=== PATIENT | male | born 1945 | race Two or more races ===

== ENCOUNTER 2018-12-27 12:02 | Emergency (ER) | payer OTHER ==
[~2018-12-27] VITALS: Ht 182.9 cm; Wt 108.9 kg
[~2018-12-27 12:02] MED LIST: CELE200C PO; GEMF600T8 PO; LISI1TAB7 PO; METF500T16 PO; METH-37 PO; OMEG1CAP6 PO; POTA10TA12 PO
[2018-12-27] MEDS ORDERED: fentaNYL PF VIAL 100 MCG/2 ML VIAL IV ONE (13:00)
[2018-12-27 13:46] LABS: BASO # 0.1 x10^3/uL (0.0-0.2); BASO % 1 % (0-3); EOS # 0.4 x10^3/uL (0.0-0.7); EOS % 7 % (0-3); HEMATOCRIT 33.7 % (39.0-53.0); HEMOGLOBIN 11.4 g/dL (13.0-17.5); LYMPH # 2.5 x10^3/uL (1.0-4.8); LYMPH % 48 % (24-48); MEAN CORPUSCULAR HEMOGLOBIN 27 pg (25-35); MEAN CORPUSCULAR HGB CONC 34 g/dL (31-37); MEAN CORPUSCULAR VOLUME 81 fL (79-100); MONO # 0.7 x10^3/uL (0.0-1.1); MONO % 13 % (0-9); NEUT # 1.7 x10^3uL (1.8-7.7); NEUT % 31 % (31-73); PLATELET COUNT 189 x10^3/uL (140-400); RED BLOOD COUNT 4.18 x10^6/uL (4.30-5.70); RED CELL DISTRIBUTION WIDTH 14.6 % (11.5-14.5); WHITE BLOOD COUNT 5.3 x10^3/uL (4.0-11.0)
--- NOTE | 2018-12-27 13:46 | RAD ---
Bilateral 3 view shoulder portable HISTORY: Bilateral shoulder pain after a fall on Tuesday. Bruising. 3 view right shoulder The glenohumeral joint is poorly profiled on all views limiting evaluation. There is no definite acute fracture identified. Degenerative changes at the acromioclavicular joint with undersurface osteophytes. No evidence of dislocation. IMPRESSION: No definite acute fracture or dislocation Three-view left shoulder Severe degenerative changes at the left glenohumeral joint with marginal osteophytes. There appears to be volume loss and flattening of the humeral head and glenoid. AC joint is grossly intact. No dislocation. IMPRESSION: Primary osteoarthritis. No definite acute fracture or dislocation. Electronically signed by: Lobito Chavez MD (12/27/2018 1:43 PM) [facility]
--- NOTE | 2018-12-27 13:46 | RAD ---
CHEST AP ONLY Clinical Indication: PT FELL ON TUESDAY, CHEST PAIN Comparison: Two-view chest, October 09, 2007. Findings: The cardiomediastinal silhouette is normal. There is minimal atelectasis or scarring in the left lung base. Lungs are otherwise clear. There is no pneumothorax. No pleural effusion is appreciated. No acute bone abnormality. There is stable prominence of the left first rib costochondral junction. There is degenerative endplate spurring of the thoracic spine. IMPRESSION: No acute cardiopulmonary process. Electronically signed by: Rodger Menjivar MD (12/27/2018 1:44 PM) [id number]
--- NOTE | 2018-12-27 13:46 | RAD ---
Indications: Patient fell Carter. Bilateral knee pain. THREE-VIEW RIGHT KNEE STUDY: No acute fracture or dislocation or lytic process is seen. Chondrocalcinosis is evident. There are calcifications within the suprapatellar recess. The findings may be seen with CPPD. There is mild degenerative spurring of the patellofemoral joint compartment. There is mild degenerative spurring and joint space narrowing of the medial tibial femoral joint compartment. There is mild degenerative spurring without joint space narrowing of the lateral tibiofemoral joint compartment. Small radiopaque loose bodies are evident within the tibiofemoral joint compartment. IMPRESSION: No acute fracture. Tricompartmental primary degenerative osteoarthritis. 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 3 VIEW LEFT KNEE STUDY: Total left knee arthroplasty is evident which is well aligned. No acute fracture or dislocation or lytic process is seen. IMPRESSION: Total left knee arthroscopy. No acute fracture. Electronically signed by: Domenic Brothers MD (12/27/2018 1:43 PM) [facility]
--- NOTE | 2018-12-27 13:47 | RAD ---
AP view of the pelvis and two-view study of the left hip Clinical indications: Patient fell Carter. Left hip pain. FINDINGS: Total left hip arthroplasty is evident which is well aligned. The femoral stem is located centrally within the intramedullary canal of the proximal left femur. No acute fracture or dislocation or diastases or lytic process is evident. Total right hip arthroplasty is evident as well which is well aligned. IMPRESSION: No acute fracture. Electronically signed by: Domenic Brothers MD (12/27/2018 1:44 PM) [facility]
--- NOTE | 2018-12-27 13:53 | EKG ---
[facility] [address] [place] [address] Test Date: 2018-12-27 Test Time: 12:44:12 Pat Name: SANDRA AGUERO Department: Patient ID: [facility]-[id number] Room: Gender: M Author: [facility] ER : 1945 Requested By: SHEILA WALLACE Order Number: [id number] Reading MD: Baltazar Grant Measurements Intervals [place] Rate: 60 P: -147 AL: 142 QRS: 26 QRSD: 102 T: 20 QT: 466 QTc: 470 Interpretive Statements SINUS RHYTHM NORMAL ECG No previous ECG available for comparison Electronically Signed On 01-03-2019 11:39:23 CDT by Baltazar Grant
[2018-12-27 13:59] LABS: CREATININE 1.4 mg/dL (0.7-1.3); GFR 49.5; POTASSIUM 3.5 mmol/L (3.5-5.1)
[2018-12-27 14:05] LABS: ALBUMIN 3.8 g/dL (3.4-5.0); TOTAL BILIRUBIN 0.5 mg/dL (0.2-1.0); TOTAL PROTEIN 7.6 g/dL (6.4-8.2)
--- NOTE | 2018-12-27 14:14 | RAD ---
CT HEAD AND CERVICAL SPINE WO Indication: FALL 12/23 SHOULDER AND NECK PAIN NO PREV Exposure: One or more of the following individualized dose reduction techniques were utilized for this examination: 1. Automated exposure control 2. Adjustment of the mA and/or kV according to patient size 3. Use of iterative reconstruction technique. Technique: Standard imaging without intravenous contrast. CT head: No evidence of acute intracranial hemorrhage, mass effect, midline shift or abnormal extra-axial fluid collection. Mild prominence of ventricles and sulci compatible with mild atrophy. The orbits appear symmetric. No large scalp hematoma. There appears to be mild expansion of the sella with isodense tissue. This could be a pituitary mass such as a macroadenoma. The partially visualized sinuses are clear. No evidence of acute skull abnormality. IMPRESSION: 1. No acute intracranial hemorrhage or mass effect. 2. Evidence of a sellar mass, with mild bony expansion of the sella. This may represent a pituitary tumor such as a macroadenoma. MRI could further evaluate. CT cervical spine Ring of C1 is intact. Cervico-occipital junction is intact. C1-C2 relationship is grossly symmetric. Vertebral body height is maintained. There is no evidence of an acute fracture. Multilevel degenerative spondylosis with loss of disc height and spurring. There is facet joint degenerative disease. Jkwq-gr-oayhyxxc spinal canal narrowing at multiple levels as well as bilateral neural foraminal stenosis. No significant facet joint separation. Degenerative changes at the anterior C1 and C2 articulation. There is mild left convexity curvature of the cervical spine. Straightening of the normal cervical lordosis. No significant prevertebral soft tissue swelling or hematoma. Mild asymmetry of the thyroid gland, greater on the right. Lung apices are clear. IMPRESSION: 1. Cervical spondylosis with stenosis. 2. No evidence of an acute fracture or traumatic subluxation. Electronically signed by: Lobito Chavez MD (12/27/2018 2:11 PM) [facility]
[2018-12-27 14:23] LABS: BILIRUBIN,URINE NEGATIVE (NEG); CLARITY,URINE CLEAR; COLOR,URINE YELLOW; NITRITE,URINE NEGATIVE (NEG); PROTEIN,URINE NEGATIVE (NEG-TRACE); UROBILINOGEN,URINE 0.2 mg/dL (0.2 mg/dL)
[2018-12-27 14:30] VITALS: BP 106/57
[2018-12-27 14:36] LABS: BACTERIA,URINE 0 /HPF (0-FEW); RBC,URINE RARE /HPF (0-2); SQUAMOUS EPITHELIAL CELL,UR FEW /LPF; WBC,URINE RARE /HPF (0-4)
[2018-12-27] MEDS ORDERED: IV NORMAL SALINE 1000ML BAG 1,000 ML IV ONE (14:45)
[2018-12-27] MEDS ORDERED: HYDR-3164 PO (15:02)
--- NOTE | 2018-12-27 15:02 | PHYS DOC ---
Past Medical History Past Medical History: Diabetes-Type II, Hypertension, Other Additional Past Medical Histor: NEUROPATHY Past Surgical History: Hip Replacement Additional Past Surgical Histo: BILATERAL HIP REPLACEMENT Alcohol Use: Occasionally Drug Use: None Adult General Chief Complaint Chief Complaint: MECHANICAL FALL HPI HPI Patient is a 73 year old Japanese speaking male who presents with his daughter because of fall and pain. Patient states he had a fall from 3 stairs at his home 6 days ago without loss of consciousness. Patient complaining of pain in his head, bilateral shoulder, bilateral hip and bilateral knees that does not getting better. Patient states he was scheduled for a procedure next week and his doctor told him to not take any pain medication therefore he did not take any prescribed or glov-oyw-izorhjx pain medication and rated his pain 10 over 10. She denies nausea and vomiting, blurred vision, confusion, chest pain and shortness of breath or focal neuro deficit. Last tetanus immunization is unknown. Review of Systems Review of Systems Constitutional: Denies fever or chills [] Eyes: Denies change in visual acuity, redness, or eye pain [] HENT: Denies nasal congestion or sore throat [] Respiratory: Denies cough or shortness of breath [] Cardiovascular: No additional information not addressed in HPI [] GI: Denies abdominal pain, nausea, vomiting, bloody stools or diarrhea [] : Denies dysuria or hematuria [] Musculoskeletal: Denies back pain or joint pain [] Integument: Denies rash or skin lesions [] Neurologic: Denies headache, focal weakness or sensory changes [] Endocrine: Denies polyuria or polydipsia [] All other systems were reviewed and found to be within normal limits, except as documented in this note. Current Medications Current Medications Current Medications Medications (Trade) Dose Ordered Sig/[facility] Start Time Stop Time Status Last Admin Dose Admin Fentanyl Citrate (Fentanyl 2ml Vial) 50 mcg 1X ONCE 12/27/18 13:00 12/27/18 13:04 DC 12/27/18 14:31 50 MCG Sodium Chloride 1,000 ml @ 1,000 mls/hr 1X ONCE 12/27/18 14:45 12/27/18 15:44 DC 12/27/18 14:47 1,000 MLS/HR Allergies Allergies Allergies Coded Allergies Type Severity Reaction Last Updated Verified ceftriaxone Allergy Intermediate Rash 12/21/18 Yes Physical Exam Physical Exam Constitutional: Well developed, well nourished, mild distress, non-toxic appearance. [] HENT: Normocephalic, small old forehead contusion, bilateral external ears normal, oropharynx moist, no oral exudates, nose normal. [] Eyes: PERRLA, EOMI, conjunctiva normal, no discharge. [] Neck: Normal range of motion, no tenderness, supple, no stridor. [] Cardiovascular:Heart rate regular rhythm, no murmur [] Lungs & Thorax: Bilateral breath sounds clear to auscultation [] Abdomen: Bowel sounds normal, soft, no tenderness, no masses, no pulsatile masses. [] Skin: Warm, dry, no erythema, no rash. [] Back: No tenderness, no CVA tenderness. [] Extremities: Left knee with contusion without deformity or edema, normal range of motion of bilateral shoulder and hip and knees Neurologic: Alert and oriented X 3, normal motor function, normal sensory function, no focal deficits noted. [] Psychologic: Affect normal, judgement normal, mood normal. [] Current Patient Data Vital Signs Vital Signs Date Time Temp Pulse Resp B/P (MAP) Pulse Ox O2 Delivery O2 Flow Rate FiO2 12/27/18 15:30 60 93 12/27/18 14:30 20 12/27/18 12:08 98.0 128/58 (81) Room Air 98.0 Lab Values Laboratory Tests Test 12/27/18 13:35 12/27/18 14:10 White Blood Count 5.3 x10^3/uL (4.0-11.0) Red Blood Count 4.18 x10^6/uL (4.30-5.70) L Hemoglobin 11.4 g/dL (13.0-17.5) L Hematocrit 33.7 % (39.0-53.0) L Mean Corpuscular Volume 81 fL (79-100) Mean Corpuscular Hemoglobin 27 pg (25-35) Mean Corpuscular Hemoglobin Concent 34 g/dL (31-37) Red Cell Distribution Width 14.6 % (11.5-14.5) H Platelet Count 189 x10^3/uL (140-400) Neutrophils (%) (Auto) 31 % (31-73) Lymphocytes (%) (Auto) 48 % (24-48) Monocytes (%) (Auto) 13 % (0-9) H Eosinophils (%) (Auto) 7 % (0-3) H Basophils (%) (Auto) 1 % (0-3) Neutrophils # (Auto) 1.7 x10^3uL (1.8-7.7) L Lymphocytes # (Auto) 2.5 x10^3/uL (1.0-4.8) Monocytes # (Auto) 0.7 x10^3/uL (0.0-1.1) Eosinophils # (Auto) 0.4 x10^3/uL (0.0-0.7) Basophils # (Auto) 0.1 x10^3/uL (0.0-0.2) Sodium Level 127 mmol/L (136-145) L Potassium Level 3.5 mmol/L (3.5-5.1) Chloride Level 91 mmol/L (98-107) L Carbon Dioxide Level 25 mmol/L (21-32) Anion Gap 11 (6-14) Blood Urea Nitrogen 32 mg/dL (8-26) H Creatinine 1.4 mg/dL (0.7-1.3) H Estimated GFR (Cockcroft-Gault) 49.5 BUN/Creatinine Ratio 23 (6-20) H Glucose Level 136 mg/dL (70-99) H Calcium Level 10.0 mg/dL (8.5-10.1) Total Bilirubin 0.5 mg/dL (0.2-1.0) Aspartate Amino Transferase (AST) 46 U/L (15-37) H Alanine Aminotransferase (ALT) 24 U/L (16-63) Alkaline Phosphatase 106 U/L (46-116) Creatine Kinase 173 U/L (39-308) Troponin I Quantitative < 0.017 ng/mL (0.000-0.055) ZF-Ddx-L-Type Natriuretic Peptide 258 pg/mL (0-124) H Total Protein 7.6 g/dL (6.4-8.2) Albumin 3.8 g/dL (3.4-5.0) Albumin/Globulin Ratio 1.0 (1.0-1.7) Urine Collection Type Void Urine Color Yellow Urine Clarity Clear Urine pH 6.0 Urine Specific [place] 1.010 Urine Protein Negative mg/dL (NEG-TRACE) Urine Glucose (UA) Negative mg/dL (NEG) Urine Ketones (Stick) Negative mg/dL (NEG) Urine Blood Negative (NEG) Urine Nitrite Negative (NEG) Urine Bilirubin Negative (NEG) Urine Urobilinogen Dipstick 0.2 mg/dL (0.2 mg/dL) Urine Leukocyte Esterase Negative (NEG) Urine RBC Rare /HPF (0-2) Urine WBC Rare /HPF (0-4) Urine Squamous Epithelial Cells Few /LPF Urine Bacteria 0 /HPF (0-FEW) Laboratory Tests 12/27/18 13:35 Laboratory Tests 12/27/18 13:35 EKG EKG EKG interpreted by me. EKG at 1244 showed sinus rhythm at rate of 60, no acute ST and T-wave abnormalities. Radiology/Procedures Radiology/Procedures [address] [address] IMAGING REPORT Signed PATIENT: SANDRA AGUERO ACCOUNT: [id number] : 1945 LOCATION: ER AGE: 73 SEX: M EXAM STATUS: REG ER ORD. PHYSICIAN: SHEILA WALLACE MD REASON: fell on Tuesday, soreness with bruising PROCEDURE: CHEST AP ONLY CHEST AP ONLY Clinical Indication: PT FELL ON TUESDAY, CHEST PAIN Comparison: Two-view chest, October 09, 2007. Findings: The cardiomediastinal silhouette is normal. There is minimal atelectasis or scarring in the left lung base. Lungs are otherwise clear. There is no pneumothorax. No pleural effusion is appreciated. No acute bone abnormality. There is stable prominence of the left first rib costochondral junction. There is degenerative endplate spurring of the thoracic spine. IMPRESSION: No acute cardiopulmonary process. Electronically signed by: Rodger Menjivar MD (12/27/2018 1:44 PM) [id number] DICTATED and SIGNED BY: RODGER MENJIVAR MD DATE: 12/27/[address] [address] IMAGING REPORT Signed PATIENT: SANDRA AGUERO ACCOUNT: [id number] : 1945 LOCATION: ER AGE: 73 SEX: M EXAM STATUS: REG ER ORD. PHYSICIAN: SHEILA WALLACE MD REASON: fall, dizziness, shoulder pain PROCEDURE: CT HEAD AND CERVICAL SPINE WO CT HEAD AND CERVICAL SPINE WO Indication: FALL 12/23 SHOULDER AND NECK PAIN NO PREV Exposure: One or more of the following individualized dose reduction techniques were utilized for this examination: 1. Automated exposure control 2. Adjustment of the mA and/or kV according to patient size 3. Use of iterative reconstruction technique. Technique: Standard imaging without intravenous contrast. CT head: No evidence of acute intracranial hemorrhage, mass effect, midline shift or abnormal extra-axial fluid collection. Mild prominence of ventricles and sulci compatible with mild atrophy. The orbits appear symmetric. No large scalp hematoma. There appears to be mild expansion of the sella with isodense tissue. This could be a pituitary mass such as a macroadenoma. The partially visualized sinuses are clear. No evidence of acute skull abnormality. IMPRESSION: 1. No acute intracranial hemorrhage or mass effect. 2. Evidence of a sellar mass, with mild bony expansion of the sella. This may represent a pituitary tumor such as a macroadenoma. MRI could further evaluate. CT cervical spine Ring of C1 is intact. Cervico-occipital junction is intact. C1-C2 relationship is grossly symmetric. Vertebral body height is maintained. There is no evidence of an acute fracture. Multilevel degenerative spondylosis with loss of disc height and spurring. There is facet joint degenerative disease. Wsrb-rk-yutwapit spinal canal narrowing at multiple levels as well as bilateral neural foraminal stenosis. No significant facet joint separation. Degenerative changes at the anterior C1 and C2 articulation. There is mild left convexity curvature of the cervical spine. Straightening of the normal cervical lordosis. No significant prevertebral soft tissue swelling or hematoma. Mild asymmetry of the thyroid gland, greater on the right. Lung apices are clear. IMPRESSION: 1. Cervical spondylosis with stenosis. 2. No evidence of an acute fracture or traumatic subluxation. Electronically signed by: Lobito Chavez MD (12/27/2018 2:11 PM) [facility] DICTATED and SIGNED BY: LOBITO CHAVEZ MD DATE: 12/27/18 1411 [facility] [address] [place] [address] IMAGING REPORT Signed PATIENT: SANDRA AGUERO ACCOUNT: [id number] : 1945 LOCATION: ER AGE: 73 SEX: M EXAM STATUS: REG ER ORD. PHYSICIAN: SHEILA WALLACE MD REASON: fell on Tuesday, soreness with bruising PROCEDURE: KNEE BILAT 3V Indications: Patient fell Tuesday. Bilateral knee pain. THREE-VIEW RIGHT KNEE STUDY: No acute fracture or dislocation or lytic process is seen. Chondrocalcinosis is evident. There are calcifications within the suprapatellar recess. The findings may be seen with CPPD. There is mild degenerative spurring of the patellofemoral joint compartment. There is mild degenerative spurring and joint space narrowing of the medial tibial femoral joint compartment. There is mild degenerative spurring without joint space narrowing of the lateral tibiofemoral joint compartment. Small radiopaque loose bodies are evident within the tibiofemoral joint compartment. IMPRESSION: No acute fracture. Tricompartmental primary degenerative osteoarthritis. 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 3 VIEW LEFT KNEE STUDY: Total left knee arthroplasty is evident which is well aligned. No acute fracture or dislocation or lytic process is seen. IMPRESSION: Total left knee arthroscopy. No acute fracture. Electronically signed by: Sukhdeep Brothers MD (12/27/2018 1:43 PM) [facility] DICTATED and SIGNED BY: SUKHDEEP BROTHERS MD DATE: 12/27/18 1343 [facility] [address] [place] [address] IMAGING REPORT Signed PATIENT: SANDRA AGUERO ACCOUNT: [id number] : 1945 LOCATION: ER AGE: 73 SEX: M EXAM STATUS: REG ER ORD. PHYSICIAN: SHEILA WALLACE MD REASON: fell on Tuesday, soreness with bruising PROCEDURE: SHOULDER BILAT 2+V Bilateral 3 view shoulder portable HISTORY: Bilateral shoulder pain after a fall on Tuesday. Bruising. 3 view right shoulder The glenohumeral joint is poorly profiled on all views limiting evaluation. There is no definite acute fracture identified. Degenerative changes at the acromioclavicular joint with undersurface osteophytes. No evidence of dislocation. IMPRESSION: No definite acute fracture or dislocation Three-view left shoulder Severe degenerative changes at the left glenohumeral joint with marginal osteophytes. There appears to be volume loss and flattening of the humeral head and glenoid. AC joint is grossly intact. No dislocation. IMPRESSION: Primary osteoarthritis. No definite acute fracture or dislocation. Electronically signed by: Lobito Chavez MD (12/27/2018 1:43 PM) [facility] DICTATED and SIGNED BY: LOBITO CHAVEZ MD DATE: 12/27/18 8208 [facility] [address] [place], [place] [id number] IMAGING REPORT Signed PATIENT: SANDRA AGUERO ACCOUNT: [id number] : 1945 LOCATION: ER AGE: 73 SEX: M EXAM STATUS: REG ER ORD. PHYSICIAN: SHEILA WALLACE MD REASON: fell on Tuesday, soreness with bruising PROCEDURE: HIP LEFT 2V WITH PELVIS AP view of the pelvis and two-view study of the left hip Clinical indications: Patient fell Tuesday. Left hip pain. FINDINGS: Total left hip arthroplasty is evident which is well aligned. The femoral stem is located centrally within the intramedullary canal of the proximal left femur. No acute fracture or dislocation or diastases or lytic process is evident. Total right hip arthroplasty is evident as well which is well aligned. IMPRESSION: No acute fracture. Electronically signed by: Sukhdeep Brothers MD (12/27/2018 1:44 PM) [facility] DICTATED and SIGNED BY: SUKHDEEP BROTHERS MD DATE: 12/27/18 4737 Course & Med Decision Making Course & Med Decision Making Pertinent Labs and Imaging studies reviewed. (See chart for details) Evaluation of patient in ER showed 73-year-old male patient with a fall several days ago and complaining of pain in several joints and head does not getting better without taking any pain medication. Patient had several area of contusion with unremarkable x-ray of bilateral hip, shoulder and his and CT head and neck. Patient treated with pain medication in ER and felt better. Patient informed with test results and needs to take pain medication and informing his physician. The patient had sodium of 127 and stated he was drinking plenty of water. Patient treated with IV fluid and was advised to not take plain water. She also has chronic renal insufficiency and was advised to follow-up with his primary care physician. I've spoken with the patient and/or caregivers. I've explained the patient's condition, diagnosis and treatment plan based on information available to me at this time. I've answered the patient's and/or caregivers questions and addressed any concerns. The patient and/or caregivers have a good understanding the patient's diagnosis, condition and treatment plan as can be expected at this point. Vital signs have been stabilized. The patient's condition is stable for discharge from the emergency department. The patient will pursue further outpatient evaluation with her primary care provider or other designated consulting physician as outlined in the discharge instructions. Patient and/or caregivers are agreeable to this plan of care and follow-up instructions have been explained in detail. The patient and/or caregivers have received these instructions in written format and expressed understanding of these discharge instructions. The patient and her caregivers are aware that if any significant change in condition or worsening of symptoms should prompt him to immediately return to this of the closest emergency department. If an emergent department is not readily available I would encour age him to call 911. Dragon Disclaimer Dragon Disclaimer This electronic medical record was generated, in whole or in part, using a voice recognition dictation system. Departure Departure Impression: Primary Impression: Fall down stairs Additional Impressions: Hyponatremia Head injury Shoulder pain, bilateral Contusion of knee, left Hip pain, bilateral Chronic renal insufficiency Anemia Disposition: HOME, SELF-CARE (at 1459) Condition: IMPROVED Referrals: LOBITO KU MD (PCP) Patient Instructions: Contusion, Fall Prevention and Home Safety, Head Injury, Adult, Hip Injury, Hyponatremia Additional Instructions: Apply ice on the affected area Follow-up with your primary care physician in 3-5 days Return to ER if not getting better Scripts Hydrocodone/Apap 5-325 (NORCO 5-325 TABLET) 1 Each Tablet 1 TAB PO PRN Q6HRS PRN for PAIN, #14 TAB 0 Refills Prov: SHEILA WALLACE MD 12/27/18 Problem Qualifiers Primary Impression: Fall down stairs Encounter type: subsequent encounter Qualified Codes: W10.8XXD - Fall (on) (from) other stairs and steps, subsequent encounter Additional Impressions: Head injury Encounter type: initial encounter Qualified Codes: S09.90XA - Unspecified injury of head, initial encounter Shoulder pain, bilateral Chronicity: acute Qualified Codes: M25.511 - Pain in right shoulder; M25.512 - Pain in left shoulder Contusion of knee, left Encounter type: initial encounter Qualified Codes: S80.02XA - Contusion of left knee, initial encounter Chronic renal insufficiency Chronic kidney disease stage: unspecified stage Qualified Codes: N18.9 - Chronic kidney disease, unspecified Anemia Anemia type: unspecified type Qualified Codes: D64.9 - Anemia, unspecified SHEILA WALLACE MD Dec 27, 2018 15:02
[2019-01-03] MEDS ORDERED: FURO40TA4 PO (06:52)
[2019-01-03] MEDS ORDERED: GABA600T7 PO (06:52)
[2019-01-03] MEDS ORDERED: AMLO5TAB10 PO (06:52)
[2019-01-03] MEDS ORDERED: BISO1TAB4 PO (06:52)
[2019-01-03] MEDS ORDERED: POTA10TA12 PO (06:52)
== END 2018-12-27 15:40 | disposition home or self-care (01) ==
LOC: ER 12:02
DX: S80.02XA Contusion of left knee, initial encounter (principal); S00.83XA Contusion of other part of head, initial encounter; E87.1 Hypo-osmolality and hyponatremia; M25.512 Pain in left shoulder; M25.511 Pain in right shoulder; M25.551 Pain in right hip; M25.561 Pain in right knee; M25.552 Pain in left hip; R07.89 Other chest pain; M54.2 Cervicalgia; D63.1 Anemia in chronic kidney disease; E11.22 Type 2 diabetes mellitus with diabetic chronic kidney disease; I12.9 Hypertensive chronic kidney disease with stage 1 through stage 4 chronic kidney disease, or unspecified chronic kidney disease; N18.9 Chronic kidney disease, unspecified; E11.40 Type 2 diabetes mellitus with diabetic neuropathy, unspecified; Z96.643 Presence of artificial hip joint, bilateral; Z88.1 Allergy status to other antibiotic agents; W10.9XXA Fall (on) (from) unspecified stairs and steps, initial encounter; Y93.89 Activity, other specified; Y92.009 Unspecified place in unspecified non-institutional (private) residence as the place of occurrence of the external cause; Y99.8 Other external cause status
CPT/HCPCS: 36415; 70450; 71045; 72125; 73030; 73502; 73562; 80053; 81001; 82550; 83880; 84484; 85025; 93005; 96374; 99285; J3010; J7030

== ENCOUNTER → 2019-01-03 | Day surgery (SDC) | payer OTHER ==
[~2019-01-03] MED LIST changes: +AMLO5TAB10 PO; +BISO1TAB4 PO; +FURO40TA4 PO; +GABA600T7 PO; +HYDR-3164 PO; +IV RINGERS,LACTATED 1000ML 1,000 ML IV SCH; +LIDOCAINE 1% PF 2 ML VIAL. ID PRN; +MIDAZOLAM HCL/PF 2 MG/2 ML VIAL. IV PRN; +PROPOFOL 40 ML IV ONE; +fentaNYL PF VIAL 100 MCG/2 ML VIAL IV PRN
[2019-01-03 08:22] VITALS: BP 136/65
--- NOTE | 2019-01-04 14:41 | PATHOLOGY ---
[facility] Accession Number: [id number] . 01 Material submitted: . colon - SIGMOID POLYP. Modifiers: sigmoid . 01 Clinical history: . Blood in stools . 02 Diagnosis: Colon biopsy, sigmoid colon polyp: - Hyperplastic polyp showing coagulation artifact. 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 02 Comment: There is no high-grade dysplasia or evidence of malignancy. . 02 Electronically signed: . Jones Felipe MD, Pathologist NPI- [id number] . 01 Gross description: . Received in formalin labeled "Duartegarcia, Elio, sigmoid polyp," is a single segment of narvaez soft tissue measuring 0.4 cm in maximum dimension. The specimen is entirely submitted in cassette A1. (TSD; 01/03/2019) TOB/TOB . 02 Pathologist provided ICD-10: K63.5 . 02 CPT . 180171 Specimen Comment: A courtesy copy of this report has been sent to Specimen Comment: [phone], . Specimen Comment: Report sent to / DR KU Performed at: 01 [facility] [address] [facility] [address], [place] [id number] MD Feng Flores MD Phone: [phone] Performed at: 02 [facility] [address] [place], [place] [id number] MD Jones Felipe MD Phone: [phone]
== END | disposition home or self-care (01) ==
LOC: SURG 06:39
PROVIDERS: ATTEND Internal Medicine Gastroenterology
DX: K63.5 Polyp of colon (principal); K57.30 Diverticulosis of large intestine without perforation or abscess without bleeding; K64.0 First degree hemorrhoids; Z88.1 Allergy status to other antibiotic agents; E11.9 Type 2 diabetes mellitus without complications; Z79.84 Long term (current) use of oral hypoglycemic drugs; Z79.899 Other long term (current) drug therapy; Z96.643 Presence of artificial hip joint, bilateral
CPT/HCPCS: 45385; 88305; J2704; 45380

== ENCOUNTER 2019-03-31 16:24 | Emergency (ER) | payer MEDICAID, OTHER ==
[2019-01-03 08:22] VITALS: BP 136/65
[~2019-03-31 16:24] MED LIST changes: -IV RINGERS,LACTATED 1000ML 1,000 ML IV SCH; -LIDOCAINE 1% PF 2 ML VIAL. ID PRN; -MIDAZOLAM HCL/PF 2 MG/2 ML VIAL. IV PRN; -PROPOFOL 40 ML IV ONE; -fentaNYL PF VIAL 100 MCG/2 ML VIAL IV PRN
== END 2019-03-31 16:39 | disposition left against medical advice (07) ==
LOC: ER 16:24
DX: R22.31 Localized swelling, mass and lump, right upper limb (principal); Z53.21 Procedure and treatment not carried out due to patient leaving prior to being seen by health care provider

== ENCOUNTER → 2019-04-26 | Outpatient (CLI) | payer MEDICAID ==
[2019-01-03 08:22] VITALS: BP 136/65
--- NOTE | 2019-04-26 13:42 | RAD ---
Indication:Polyarthralgia TECHNIQUE: Multiple views of bilateral hand COMPARISON: None FINDINGS: Advanced bilateral radiocarpal joint and MCP joints osteoarthritis. Mild polyarticular PIP and DIP joint also arthritis. No bony erosions. No acute fractures or dislocation. IMPRESSION: As above. Electronically signed by: Casey Liriano DO (04/26/2019 1:39 PM) [facility]
== END | disposition home or self-care (01) ==
LOC: RAD 11:41
PROVIDERS: ATTEND Internal Medicine Rheumatology
DX: M19.042 Primary osteoarthritis, left hand (principal); M19.041 Primary osteoarthritis, right hand
CPT/HCPCS: 73130

== ENCOUNTER → 2019-10-16 | Outpatient (CLI) | payer MEDICAID ==
[2019-01-03 08:22] VITALS: BP 136/65
[~2019-10-16] MED LIST changes: +LISI1TAB20 PO; -LISI1TAB7 PO; +POTASSIUM CHLO10 ME1 PO
--- NOTE | 2019-10-16 11:13 | RAD ---
MRI Lumbar Spine without contrast History: Spinal stenosis, bilateral leg radiculopathy left greater than right, low back pain Technique: Multiplanar, multi sequential noncontrast MR imaging was performed of the lumbar spine. Comparison: June 03, 2017 Findings: Lumbar vertebral body stature is mostly unchanged other than a small superior L1 Schmorl's node. There are again prominent L4-L5 Schmorl's nodes. AP alignment is similar, very minimal posterior subluxation of L2 relative to L3, L3 relative to L4, and L4 relative to L5. There is again advanced degenerative disc disease L5-S1 and L4-5, moderate to severe L1-2 degenerative disc disease progressed in the interval. There is similar mild to moderate L3-4 and to lesser degree L2-3 degenerative disc disease. Conus terminates at L1-2. Small cystic focus on the left at S2 is probably a small nerve root sleeve cyst. There are again T2 hyperintense foci of the visualized bilateral kidneys which are not fully evaluated, largest on the right about 2 cm in size, statistically more likely cysts. L1-L2: Minimal posterior bulge is somewhat greater. There is again facet degenerative change and buckling of the ligamentum flavum, also mild prominence of posterior epidural fat centrally. There is increased mild narrowing of the far lateral recesses bilaterally. Neural foramina are adequate. There is again small posterior annular tear. L2-L3: There is again moderate to severe facet degenerative change and moderate buckling of the ligamentum flavum. There is again disc osteophyte complex and bulge, greater degree of indentation upon the ventral thecal sac greater in the right lateral recess. Combination of findings results in increased moderate right and mild left lateral recess stenosis, also increased [id number] attenuation of the thecal sac centrally. Neural foramina are overall adequate. L3-L4: There is again facet degenerative change. There is again minimal disc osteophyte complex and bulge. There is again very mild narrowing of the far lateral recesses bilaterally. Neural foramina are overall adequate. L4-L5: There is again bilateral facet degenerative change and buckling of the ligamentum flavum. There is again broad disc osteophyte complex. There is fairly severe right and moderate to severe left lateral recess stenosis, somewhat increased [id number]-eb-[id number] transverse narrowing of the central canal. There is again [id number] neural foramina compromise bilaterally by facets and disc osteophyte complex. L5-S1: There is again disc osteophyte complex and superimposed broad protrusion, again contact of the descending S1 nerve roots bilaterally. There is again facet degenerative change and buckling of the ligamentum flavum. There is similar moderate narrowing of the far lateral recesses bilaterally. Central canal is adequate. There is again moderate to severe narrowing of the left neural foramen with disc osteophyte complex contacting undersurface of exiting left L5 nerve root, also contacted in the extraforaminal region. Right neural foramen is again minimally narrowed by disc osteophyte complex which is also near the extraforaminal right L5 nerve root without displacement. Impression: 1. Compared with the 2017 exam, there has been progression of L1-2 degenerative disc disease. There is increased spinal stenosis at L2-3 with right greater than left lateral recess stenosis as described. There is again fairly severe right and moderate to severe left lateral recess stenosis at L4-5, somewhat progressed transverse narrowing of the central canal at this level. There is neural foramina compromise as stated greatest on the left at L5-S1 and to a lesser degree bilaterally at L4-5. There is again fairly advanced degenerative disc disease at L4-5 and L5-S1, multilevel mild spondylosis. There is multilevel mild abnormal alignment as stated, multilevel facet degenerative change. 2. There are again some T2 hyperintense foci of the bilateral kidneys, statistically more likely cysts. Electronically signed by: Flo Fried MD (10/16/2019 11:11 AM) [id number]
== END | disposition home or self-care (01) ==
LOC: MRI 09:20
PROVIDERS: ATTEND Orthopaedic Surgery Sports Medicine
DX: M51.37 Other intervertebral disc degeneration, lumbosacral region (principal); M47.817 Spondylosis without myelopathy or radiculopathy, lumbosacral region; M48.07 Spinal stenosis, lumbosacral region; M25.78 Osteophyte, vertebrae
CPT/HCPCS: 72148

== ENCOUNTER → 2019-11-30 | Outpatient (CLI) | payer MEDICAID ==
[2019-01-03 08:22] VITALS: BP 136/65
[~2019-11-30] MED LIST changes: +IOHEXOL 180 MG/ML 10 ML VIAL. ONE; +methylPREDNISolone ACETATE 40 MG/ML VIAL. ONE; +methylPREDNISolone ACETATE 80 MG/ML VIAL. ONE
--- NOTE | 2019-11-30 10:59 | PAIN ---
DATE OF SERVICE: 11/30/2019 PROGRESS NOTE FOR PAIN CLINIC DIAGNOSES: Lumbar radiculopathy with lumbar degenerative disk disease, lumbar spinal stenosis. HISTORY OF PRESENT ILLNESS: The patient is a 74-year-old male who returns for followup status post lumbar epidural steroid injection, last seen 06/2017. The patient did very well with near 100% improvement for about a year and a half. The patient reports the pain is returning now over the past year and a half as well in the low back, bilateral lower extremities, more on the right than the left, posterior gluteus, posterior thighs, posterior calves bilaterally, but again worse on the right side. The patient reports there is no specific injury or accident he is aware of, no new injuries. The patient reports it awakens him from sleep at least 3 times a night, does not affect his bowel or bladder control, does affect his ability to walk with some significant fatigability, especially in the right leg with activity, standing, walking, worse with getting up out of a chair, changing positions, better with sitting or lying down, but it awakens him from sleep occasionally, not every night, but has been more noticeable over the past month or so. The patient reports it is constant with tingling and radiating pain, describes aching and cramping in the back, burning and worse at night in the low back itself, worse with walking with the bilateral lower extremities and again right greater than left. The patient rates his disability from 0-10, 10 being the worst, is an 8 with family home responsibilities, recreation, social activity, occupation and sexual behavior, self-care and life support activities, all 8/10. The patient has tried some oral steroids, which did help temporarily. The patient also had physical therapy about 3 months ago and again previous epidural injections, which were very successful. The patient reports no new motor or sensory deficits, no bowel or bladder incontinence or other complaints. PHYSICAL EXAMINATION: VITAL SIGNS: The patient's blood pressure is 145/81, pulse 66, respirations 18, temperature is 98.6 degrees Fahrenheit. Weight is 227 pounds. GENERAL: The patient is awake, alert, oriented, appropriate, very pleasant demeanor. HEENT: Head shows normocephalic, atraumatic. Extraocular movements are intact and symmetrical. Oral cavity shows mucous membranes are moist and pink. Dentition is intact. NECK: Shows anterior throat supple without palpable lymphadenopathy noted. Swallow reflex symmetrical. CHEST: Shows normal on inspection. Breath sounds are clear bilaterally. HEART: Shows S1 and S2 clear. ABDOMEN: Soft, nontender, nondistended. No palpable organomegaly is noted. No rebound or guarding demonstrated. BACK: Shows spine grossly in the midline, normal appearing thoracic kyphosis and some minor flattening of lumbar lordotic curvature. Lumbar paraspinous muscle shows symmetrical on inspection, on palpation shows some mild tenderness throughout the upper, middle and lower distributions of the paraspinous muscles, slightly more in the lower distribution on the right than the left, but present bilaterally. No asymmetry, no atrophy, no hypertrophy, no trigger points. The patient has full rotational motion of lumbar spine, both laterally greater than 10 degrees right and left as well as extension greater than 10 degrees, forward flexion 45 degrees without significant pain reported. EXTREMITIES: Lower extremities show deep tendon reflexes 1+ in the patellar and tendo calcaneus tendons. Motor exam is strong with 5/5 dorsiflexion, extension, quadriceps and hamstring flexion equal bilaterally. The patient has a mild straight leg raise on the right at about 35-40 degrees, but negative on the left. Peripheral pulses are 1+ to posterior tibia. No peripheral edema is noted bilaterally. The patient does have a new MRI scan of the lumbar spine showing a comparison to 2017 exam with progression of L1-L2 degenerative disk disease, increased spinal stenosis at L2-L3, and again fairly severe right and [id number] left lateral recess stenosis at L4-L5, progressed transverse narrowing of the central canal at that level as well. Options were discussed with the patient. The patient's old chart was reviewed as his current medication regimen updated. Current review of systems updated today as well and we will proceed with a lumbar epidural steroid injection. We discussed the procedure using description as well as anatomical models to describe the procedure. Risks were then discussed including, but not limited to bleeding, infection, possibility of epidural hematoma, subsequent neurological compromise, dural puncture, headaches, spinal cord and/or nerve damage, side effects of steroid medication and poor results regarding pain control. The patient understands and wished to proceed. The patient will return to clinic in approximately 2 weeks for followup. He was counseled on his return appointment, activity level and side effects to be aware of. DIAGNOSES: Lumbar radiculopathy with lumbar degenerative disk disease, lumbar spinal stenosis. PROCEDURE: Lumbar epidural steroid injection translaminar approach at the L4-L5 level using C-arm fluoroscopic guidance under sterile prep and drape using local anesthetic. MEDICATIONS INJECTED: A total of 120 mg Depo-Medrol plus 10 mL of preservative-free normal saline and 2 mL of contrast. CONDITION AT DISCHARGE: Stable. The patient tolerated the procedure well, had no complications. KEV CABRALES MD DR: DEBORAH/nts JOB#: [id number] / [id number]
== END ==
LOC: PNCL 09:06
PROVIDERS: ATTEND Anesthesiology
DX: M51.16 Intervertebral disc disorders with radiculopathy, lumbar region (principal); M48.061 Spinal stenosis, lumbar region without neurogenic claudication
CPT/HCPCS: 62323; J1030; J1040; Q9965

== ENCOUNTER → 2019-12-14 | Outpatient (CLI) | payer MEDICAID ==
[2019-01-03 08:22] VITALS: BP 136/65
[~2019-12-14] MED LIST changes: -IOHEXOL 180 MG/ML 10 ML VIAL. ONE; -methylPREDNISolone ACETATE 40 MG/ML VIAL. ONE; -methylPREDNISolone ACETATE 80 MG/ML VIAL. ONE
--- NOTE | 2019-12-14 09:55 | PAIN ---
DATE OF SERVICE: 12/14/2019 PROGRESS NOTE FOR PAIN CLINIC DIAGNOSES: Lumbar radiculopathy with lumbar degenerative disk disease, and lumbar spinal stenosis. HISTORY OF PRESENT ILLNESS: The patient is a 74-year-old male who returns for followup status post lumbar epidural steroid injection x 1. The patient reports he did very well, about 50-70% improvement, now about 50% improvement, and about 70% however immediately after the injection. The patient reports pain is returning slightly, but he is feeling quite a bit better. His legs are doing much better, does not have the tingling, numbness, pain as bad in the legs, somewhat worse on the right than the left, but present bilaterally across the low back as well. The patient reports his worst pain is an 8 on a scale of 10 at its worst, 6 on average, 0 at its least and is a 0 today. The patient reports it is a tingling sensation with some numbness in the legs, mostly in the posterior and lateral thighs, anterior thighs as well. The patient reports he has been increasing his activity with greater ease and comfort, walking greater distances, doing household activities, traveling with greater ease. It does not awaken him from sleep at night, better with sitting or lying down. Again, some pain with walking, standing, but much more controlled and the patient is very pleased with the progress thus far. The patient reports no new motor or sensory deficits, no new bowel or bladder incontinence or other complaints. PHYSICAL EXAMINATION: VITAL SIGNS: The patient's blood pressure 157/78, pulse 63, respirations 18, temperature 98.2 degrees Fahrenheit, weight is 225 pounds. GENERAL: The patient is awake, alert, oriented, appropriate, very pleasant demeanor. HEENT: Exam shows normocephalic, atraumatic. Extraocular movements are intact and symmetrical. Oral cavity shows mucous membranes moist and pink. Dentition is intact. NECK: Shows anterior throat supple without palpable lymphadenopathy noted. Swallow reflex symmetrical. CHEST: Shows normal on inspection. Breath sounds are clear to auscultation bilaterally. HEART: Shows S1, S2 clear. No murmurs auscultated. ABDOMEN: Soft, nontender, nondistended. No palpable organomegaly is noted. No rebound or guarding demonstrated. BACK: Shows spine grossly in the midline. Normal appearing thoracic kyphosis and lumbar lordotic curvature. Lumbar paraspinous muscle shows symmetrical on inspection, on palpation shows some moderate tenderness diffusely bilaterally, but only diffusely without significant radiation. The patient shows good rotational motion of lumbar spine, both laterally as well as extension and flexion without significant difficulty. EXTREMITIES: The patient's lower extremities show deep tendon reflexes at 1+ in patellar and tendo calcaneus tendons. Motor exam is strong with 5/5 dorsiflexion, extension, quadriceps and hamstring flexion symmetrical. Peripheral pulses are 1+ posterior tibia. No peripheral edema is noted. Options were discussed with the patient. The patient's old chart was reviewed as his current medication regimen updated. Current review of systems updated today as well. We will hold on further injections at this time as the patient would like to wait for any further procedures. He is doing much better, he was encouraged to increase activity as tolerated, maintain stretching and strengthening exercises as well. This was discussed with the patient's daughter who serves as education program coordinator for the patient. As previously, the patient will follow up on as needed basis at this time. KEV CABRALES MD DR: DEBORAH/ethan JOB#: [id number] / [id number]
== END ==
LOC: PNCL 09:12
PROVIDERS: ATTEND Anesthesiology
DX: M51.16 Intervertebral disc disorders with radiculopathy, lumbar region (principal); M48.061 Spinal stenosis, lumbar region without neurogenic claudication
CPT/HCPCS: G0463

== ENCOUNTER → 2020-04-30 | Outpatient (CLI) | payer MEDICAID ==
[2019-01-03 08:22] VITALS: BP 136/65
--- NOTE | 2020-04-30 11:52 | RAD ---
LOWER EXTREMITY DUPLEX ARTERY ULTRASOUND Indication: Reason: Claudication; Bilateral Leg Pain; Diabetic / Spl. Instructions: / History: Comparison: None. Procedure: Arterial 2D and duplex images are obtained of the lower extremity arteries. Findings: Scattered atherosclerotic plaque in the bilateral distal common and femoral arteries. Normal triphasic waveforms are present in the common femoral artery, superficial femoral artery, popliteal artery, posterior tibial artery and dorsalis pedis artery bilaterally. Triphasic waveform also identified in the right anterior tibial artery but the left anterior tibial artery shows both a monophasic and dampened waveform, with peak systolic velocity of 29 cm/s. By contrast, the bilateral dorsalis pedis arteries show peak systolic velocities of 43 cm/s and 49 cm/s on the right and left respectively. The right FRANCOISE has a peak systolic velocity of 106 cm/s. No elevated velocities in either lower extremity arteries. IMPRESSION: Dampened, monophasic waveform with diminished velocity in the left anterior tibial artery, present in the setting of diffuse atherosclerotic disease. No focal stenosis otherwise identified in the bilateral lower extremity arteries. Electronically signed by: Honorio Corbett MD (04/30/2020 11:49 AM) [id number]
== END | disposition home or self-care (01) ==
LOC: US 09:47
PROVIDERS: ATTEND Family Medicine
DX: I70.203 Unspecified atherosclerosis of native arteries of extremities, bilateral legs (principal)
CPT/HCPCS: 93925

== ENCOUNTER → 2021-04-10 | Day surgery (SDC) | payer MEDICAID ==
[~2021-04-10] VITALS: Ht 182.9 cm; Wt 100.0 kg
[~2021-04-10] MED LIST changes: +AMLO-186 PO; -AMLO5TAB10 PO; +GEMF600T20 PO; -GEMF600T8 PO; +HYDROmorphone 2 MG/ML VIAL IVP PRN; +IV RINGERS,LACTATED 1000ML 1,000 ML IV SCH; +LIDOCAINE 2% PF 5 ML VIAL. ONE; +MORPHINE SULFATE 2 MG/ML INJ. IVP PRN; +PANT20TA2 PO; +PROCHLORPERAZINE 10 MG/2 ML VIAL. IVP PRN; +PROPOFOL 10 MG/ML (20ML) VIAL. IV ONE; +fentaNYL PF VIAL 100 MCG/2 ML VIAL IVP PRN
[2021-04-10 07:41] VITALS: BP 154/69
[2021-04-10 09:40] VITALS: BP 157/81
== END | disposition home or self-care (01) ==
LOC: ENDOS 07:19
PROVIDERS: ATTEND Internal Medicine Gastroenterology
DX: D50.9 Iron deficiency anemia, unspecified (principal); K64.0 First degree hemorrhoids; K57.30 Diverticulosis of large intestine without perforation or abscess without bleeding; K63.89 Other specified diseases of intestine; K31.89 Other diseases of stomach and duodenum; K29.40 Chronic atrophic gastritis without bleeding; R58 Hemorrhage, not elsewhere classified; I12.9 Hypertensive chronic kidney disease with stage 1 through stage 4 chronic kidney disease, or unspecified chronic kidney disease; E11.22 Type 2 diabetes mellitus with diabetic chronic kidney disease; N18.9 Chronic kidney disease, unspecified; K21.9 Gastro-esophageal reflux disease without esophagitis; M19.90 Unspecified osteoarthritis, unspecified site; Z79.84 Long term (current) use of oral hypoglycemic drugs; Z79.899 Other long term (current) drug therapy; Z87.891 Personal history of nicotine dependence; Z98.890 Other specified postprocedural states; Z88.1 Allergy status to other antibiotic agents; Z72.89 Other problems related to lifestyle
CPT/HCPCS: 36415; 43235; 45378; 82607; J2704